=== PATIENT | male | born 1960 | race Asian ===

== ENCOUNTER 2018-01-16 13:59 | Emergency (ER) | payer OTHER ==
[~2018-01-16] VITALS: Ht 170.2 cm; Wt 70.8 kg
[~2018-01-16 13:59] MED LIST: ASPI-1155 PO; GLUXR500 PO; LIP40 PO; LOSA100T15 PO; PRO40 PO; TOPXL100 PO
[2018-01-16 14:06] VITALS: BP_SYST 142
[2018-01-16] MEDS ORDERED: MORPHINE 4 MG/ML INJ. SYRINGE IVP ONE ×2 (14:30→17:30)
[2018-01-16 14:50] LABS: HEMATOCRIT 36.5 % (36-54); HEMOGLOBIN 12.4 g/dL (14.0-18.0); MEAN CORPUSCULAR HEMOGLOBIN 31 pg (27-31); MEAN CORPUSCULAR HGB CONC 34 % (32-36); MEAN CORPUSCULAR VOLUME 91 fL (79.0-98.0); PLATELET COUNT (AUTO) 255 K/uL (130-430); RED BLOOD CELL COUNT(AUTO) 4.01 MIL/uL (4.2-6.2); RED CELL DISTRIBUTION WIDTH 15.5 % (9.0-15.0)
[2018-01-16 14:59] LABS: CALCIUM 8.5 mg/dL (8.4-11.0); CREATININE 1.17 mg/dL (0.55-1.30); POTASSIUM 4.4 mmol/L (3.5-5.1)
[2018-01-16 15:03] LABS: ALBUMIN 3.8 g/dL (3.4-4.8); TOTAL BILIRUBIN 0.4 mg/dL (0.0-1.0)
[2018-01-16 15:04] LABS: BASOPHILS % (MANUAL) 0 % (0-2); EOSINOPHILS % (MANUAL) 0 % (0-7); LYMPHOCYTES % (MANUAL) 8 % (20-46); MONOCYTES % (MANUAL) 5 % (0-11)
[2018-01-16 16:08] LABS: BILIRUBIN,URINE NEGATIVE (NEGATIVE); BLOOD, URINE NEGATIVE (NEGATIVE); CLARITY/URINE CLEAR (CLEAR); COLOR,URINE YELLOW (YELLOW); GLUCOSE,URINE 3+ (NEGATIVE); KETONES,URINE NEGATIVE (NEGATIVE); LEUKOCYTE ESTERASE ,URINE NEGATIVE (NEGATIVE); NITRITE, URINE NEGATIVE (NEGATIVE); PROTEIN URINE NEGATIVE (NEGATIVE); UROBILINOGEN,URINE 0.2 (0.2-1.0)
[2018-01-16 16:28] LABS: BACTERIA,URINE FEW /HPF (None Seen); MUCUS,URINE None Seen /LPF (None Seen); RBC,URINE 0-3 /HPF (0-3); WBC,URINE 0-3 /HPF (0-3)
[2018-01-16] MEDS ORDERED: INSULIN REGULAR, HUMAN 10 UNITS/0.1 ML INJ SUBCUT ONE (16:30)
[2018-01-16] MEDS ORDERED: LACTULOSE 20 GM/30 ML UDC PO ONE (16:30)
[2018-01-16] MEDS ORDERED: CLINDAMYCIN PHOSPHATE 300 MG/2 ML VIAL IM ONE (16:45)
[2018-01-16 17:46] VITALS: BP_SYST 141
== END 2018-01-16 17:46 | disposition home or self-care (01) ==
LOC: SED 13:59
DX: K59.00 Constipation, unspecified (principal); E11.65 Type 2 diabetes mellitus with hyperglycemia; I10 Essential (primary) hypertension; J44.9 Chronic obstructive pulmonary disease, unspecified; Z79.899 Other long term (current) drug therapy; Z98.890 Other specified postprocedural states
CPT/HCPCS: 36415; 74176; 80053; 81000; 83690; 85007; 85027; 96372; 96374; 99285; J2270; J3490; J1815

== ENCOUNTER 2018-01-31 21:40 | Inpatient (IN) | payer OTHER ==
[~2018-01-31] VITALS: Ht 170.2 cm; Wt 70.8 kg
[2018-01-31 21:54] VITALS: BP_SYST 119
[2018-01-31] MEDS ORDERED: NOR10 PO (21:57)
[2018-01-31] MEDS ORDERED: NACL 0.9% 1,000 ML IV ONE (22:04)
[2018-01-31] MEDS ORDERED: PANTOPRAZOLE SODIUM 40 MG/VIAL (PROTONIX) IVP ONE (22:15)
[2018-01-31] MEDS ORDERED: KETOROLAC TROMETHAMINE 30 MG VIAL IVP ONE (22:15)
[2018-01-31 22:36] LABS: BASOPHILS % (AUTO) 0.7 % (0.0-2.0); EOSINOPHILS # (AUTO) 0.2 K/uL (0.0-0.4); EOSINOPHILS % (AUTO) 2.5 % (0.0-4.0); HEMATOCRIT 33.7 % (36-54); HEMOGLOBIN 11.7 g/dL (14.0-18.0); LYMPHOCYTES # (AUTO) 2.4 K/uL (1.0-5.5); MEAN CORPUSCULAR HEMOGLOBIN 31 pg (27-31); MEAN CORPUSCULAR HGB CONC 35 % (32-36); MEAN CORPUSCULAR VOLUME 91 fL (79.0-98.0); MONOCYTES # (AUTO) 0.5 K/uL (0.0-1.0); MONOCYTES % (AUTO) 7.6 % (1.7-9.3); NEUTROPHILS # (AUTO) 3.1 K/uL (1.8-7.7); NEUTROPHILS % (AUTO) 51.2 % (40.0-70.0); PLATELET COUNT (AUTO) 230 K/uL (130-430); RED BLOOD CELL COUNT(AUTO) 3.71 MIL/uL (4.2-6.2); WHITE BLOOD COUNT (AUTO) 6.2 K/uL (4.8-10.8)
[2018-01-31 22:44] LABS: CALCIUM 8.6 mg/dL (8.4-11.0); CREATININE 1.19 mg/dL (0.55-1.30); POTASSIUM 3.7 mmol/L (3.5-5.1)
[2018-01-31 22:49] LABS: ALBUMIN 3.9 g/dL (3.4-4.8); TOTAL BILIRUBIN 0.3 mg/dL (0.0-1.0)
[2018-01-31] MEDS ORDERED: ACETAMINOPHEN 325 MG TABLET PO PRN (23:00)
[2018-01-31] MEDS: LR 1,000 ML IV SCH (23:00)
[2018-01-31] MEDS ORDERED: MORPHINE 4 MG/ML INJ. SYRINGE IVP PRN (23:00)
[2018-01-31] MEDS ORDERED: INSULIN REGULAR, HUMAN 100 UNITS/ML, 10 ML VIAL (novoLIN R) SUBCUT PRN (23:00)
[2018-01-31] MEDS ORDERED: KETOROLAC TROMETHAMINE 15 MG VIAL IVP PRN (23:00)
[2018-01-31] MEDS ORDERED: ONDANSETRON HCL 4 MG/2 ML VIAL IVP PRN (23:00)
[2018-01-31 23:11] VITALS: BP_SYST 122
[2018-02-01] MEDS: LR 1,000 ML IV SCH ×2 (05:18→15:33)
[2018-02-01] MEDS ORDERED: INSULIN REGULAR, HUMAN 100 UNITS/ML, 10 ML VIAL (novoLIN R) SUBCUT PRN (07:00)
[2018-02-01] MEDS ORDERED: DEXTROSE 50% JECT 50 ML DISP.SYRIN IVP PRN (07:00)
[2018-02-01 08:25] VITALS: BP_SYST 131
[2018-02-01] MEDS: PANTOPRAZOLE SODIUM 40 MG/VIAL (PROTONIX) IVP SCH (08:36)
[2018-02-01] MEDS ORDERED: PANTOPRAZOLE SODIUM 40 MG TAB PO SCH (09:00)
[2018-02-01 10:56] VITALS: BP_SYST 132
[2018-02-01] MEDS: LOSARTAN POTASSIUM 50 MG TABLET (COZAAR) PO SCH (15:24)
[2018-02-01] MEDS: ASPIRIN 81 MG TAB.CHEW PO SCH (15:25)
[2018-02-01] MEDS: METOPROLOL SUCCINATE 50 MG TAB.SR.24H (TOPROL XL) PO SCH (15:25)
[2018-02-01 15:26] VITALS: BP_SYST 127
[2018-02-01] MEDS: amLODIPine BESYLATE 10 MG TABLET PO SCH (15:26)
[2018-02-01 20:30] VITALS: BP_SYST 116
[2018-02-01] MEDS ORDERED: ATORVASTATIN 20 MG TABLET PO SCH (21:00)
[2018-02-02] MEDS: LR 1,000 ML IV SCH (00:37)
[2018-02-02 00:44] VITALS: BP_SYST 119
[2018-02-02 01:05] LABS: BILIRUBIN,URINE NEGATIVE (NEGATIVE); BLOOD, URINE NEGATIVE (NEGATIVE); CLARITY/URINE CLEAR (CLEAR); COLOR,URINE YELLOW (YELLOW); GLUCOSE,URINE NEGATIVE (NEGATIVE); KETONES,URINE NEGATIVE (NEGATIVE); LEUKOCYTE ESTERASE ,URINE NEGATIVE (NEGATIVE); NITRITE, URINE NEGATIVE (NEGATIVE); PH,URINE 5.5 (5.0-8.0); PROTEIN URINE NEGATIVE (NEGATIVE); UROBILINOGEN,URINE 0.2 (0.2-1.0)
[2018-02-02 08:00] VITALS: BP_SYST 132
[2018-02-02 08:17] LABS: PROTHROMBIN TIME 10.3 SECS (9.5-12.5)
[2018-02-02] MEDS ORDERED: IOHEXOL 50 ML IV ONE (08:20)
[2018-02-02 08:22] LABS: CALCIUM 8.8 mg/dL (8.4-11.0); CREATININE 0.73 mg/dL (0.55-1.30); POTASSIUM 4.2 mmol/L (3.5-5.1)
[2018-02-02 08:38] LABS: BASOPHILS % (AUTO) 0.8 % (0.0-2.0); EOSINOPHILS # (AUTO) 0.1 K/uL (0.0-0.4); EOSINOPHILS % (AUTO) 2.3 % (0.0-4.0); HEMATOCRIT 34.3 % (36-54); HEMOGLOBIN 11.6 g/dL (14.0-18.0); LYMPHOCYTES # (AUTO) 1.1 K/uL (1.0-5.5); LYMPHOCYTES % (AUTO) 22.2 % (20.5-51.5); MEAN CORPUSCULAR HEMOGLOBIN 31 pg (27-31); MEAN CORPUSCULAR HGB CONC 34 % (32-36); MEAN CORPUSCULAR VOLUME 92 fL (79.0-98.0); MONOCYTES # (AUTO) 0.4 K/uL (0.0-1.0); MONOCYTES % (AUTO) 7.5 % (1.7-9.3); NEUTROPHILS # (AUTO) 3.5 K/uL (1.8-7.7); NEUTROPHILS % (AUTO) 67.2 % (40.0-70.0); PLATELET COUNT (AUTO) 178 K/uL (130-430); RED BLOOD CELL COUNT(AUTO) 3.73 MIL/uL (4.2-6.2); RED CELL DISTRIBUTION WIDTH 15.2 % (9.0-15.0); WHITE BLOOD COUNT (AUTO) 5.1 K/uL (4.8-10.8)
[2018-02-02] MEDS ORDERED: LR 1,000 ML IV SCH (09:13)
[2018-02-02] MEDS ORDERED: HYDROmorphone 2 MG/ML VIAL IVP PRN ×2 (09:15)
[2018-02-02] MEDS ORDERED: MEPERIDINE HCL/PF 25 MG/ML DISP.SYRIN IVP PRN (09:15)
[2018-02-02] MEDS ORDERED: HYDROmorphone 1 MG INJ. 1 MG/ML AMPUL IVP PRN (09:15)
[2018-02-02 11:00] VITALS: BP_SYST 117
[2018-02-02] MEDS: LOSARTAN POTASSIUM 50 MG TABLET (COZAAR) PO SCH (11:35)
[2018-02-02] MEDS: ASPIRIN 81 MG TAB.CHEW PO SCH (11:36)
[2018-02-02] MEDS: PANTOPRAZOLE SODIUM 40 MG/VIAL (PROTONIX) IVP SCH (11:40)
[2018-02-02] MEDS: amLODIPine BESYLATE 10 MG TABLET PO SCH (11:41)
[2018-02-02 12:00] VITALS: BP_SYST 143
[2018-02-02] MEDS: METOPROLOL SUCCINATE 50 MG TAB.SR.24H (TOPROL XL) PO SCH (12:33)
[2018-02-02 16:34] VITALS: BP_SYST 119
== END 2018-02-02 16:55 | disposition home or self-care (01) | DRG 921 ==
LOC: SED 21:40 → SMU 22:48
PROVIDERS: ADMIT Internal Medicine; ATTEND Internal Medicine
PROC: BF101ZZ Fluoroscopy of Bile Ducts using Low Osmolar Contrast (ICD-10-PCS; 2018-02-02)
PROC: 0F798ZZ Dilation of Common Bile Duct, Via Natural or Artificial Opening Endoscopic (ICD-10-PCS; 2018-02-02)
PROC: 0FPB8DZ Removal of Intraluminal Device from Hepatobiliary Duct, Via Natural or Artificial Opening Endoscopic (ICD-10-PCS; principal; 2018-02-02 08:30)
DX: T85.520A Displacement of bile duct prosthesis, initial encounter (principal); E11.9 Type 2 diabetes mellitus without complications; E78.5 Hyperlipidemia, unspecified; Y83.8 Other surgical procedures as the cause of abnormal reaction of the patient, or of later complication, without mention of misadventure at the time of the procedure; D64.9 Anemia, unspecified; I10 Essential (primary) hypertension; Z79.899 Other long term (current) drug therapy; Z79.82 Long term (current) use of aspirin; Z90.49 Acquired absence of other specified parts of digestive tract; Z79.84 Long term (current) use of oral hypoglycemic drugs; Y92.89 Other specified places as the place of occurrence of the external cause
CPT/HCPCS: 36415; 71045; 74330-TC; 80048; 80053; 81003; 82150-TC; 82962; 85025; 85610-TC; 85730-TC; 86886; 86900; 86901; 87081; 93005; 96361; 96374; 96375; 99285; C9113; J1815; J1885; J2405; J7030; Q9967